=== PATIENT | female | born 1950 | race Caucasian/White ===

== ENCOUNTER 2018-08-27 06:37 | Day surgery (SDC) | payer MEDICARE, BC ==
[2018-08-27] MEDS ORDERED: Lidocaine 2% Jelly 30 ML Tube ONE (06:51)
[2018-08-27] MEDS ORDERED: Lidocaine 1% with EPINEPHrine 1:100,000 50 ML MDV ONE (06:51)
[2018-08-27] MEDS ORDERED: ceFAZolin 2 GM in Premix Bag 1 BAG IV ONE (07:00)
[2018-08-27] MEDS ORDERED: Sodium Chloride 0.9% 1,000 ML IV SCH (07:00)
[2018-08-27] MEDS ORDERED: Midazolam 1 MG/ML 2 ML SDV ONE (07:29)
[2018-08-27] MEDS ORDERED: Propofol 200 MG/20 ML SDV ONE (07:29)
[2018-08-27] MEDS ORDERED: fentaNYL 100 MCG/2 ML SDV ONE (07:29)
--- NOTE | 2018-08-28 08:00 | OR ---
DATE OF PROCEDURE: 08/27/2018 SURGEON: Bartolo Alva MD PROCEDURES: 1. Excision of right hip eschar, 7.5 x 5.2 cm, full thickness. 2. Debridement of inferior wound, right hip, 1.1 x 1.8, full thickness (45141). 3. Wound VAC placement, right hip, 2 locations, #1 and #2 ([id number]). COMPLICATIONS: None. TAPE MAKER: None. ANESTHESIA: MAC/local. PREOPERATIVE DIAGNOSIS: Chronic wound. POSTOPERATIVE DIAGNOSIS: Chronic wound. RISKS: Risks, benefits, alternatives, and limitations including, but not limited to infection, bleeding, perforation, and chronic wounds were explained to the patient, who wished to proceed. PROCEDURE IN DETAIL: The patient was placed in left lateral decubitus position. The wound was readily identified. This eschar was removed using a combination of 15 blade and electrocautery. This was carried down into the fat. This was also cultured. The smaller wound was also debrided in the same manner, also full-thickness. This was then thoroughly irrigated after culturing of the wound itself. Once this was complete, a wound VAC system with black sponge was placed. This was cut into place using a sponge-type kit with a clear film placed over the bridge between the 2 wounds. This was then covered with film and suction was applied, after placing the track pad. A StatLock was then used to secure the tubing in place. The procedure was completed. The patient tolerated the procedure well. Bartolo Alva MD /[id number]
== END 2018-08-27 11:42 | disposition home or self-care (01) ==
LOC: JP.SDS 06:37
PROVIDERS: ATTEND Surgery
DX: E11.52 Type 2 diabetes mellitus with diabetic peripheral angiopathy with gangrene (principal); I96 Gangrene, not elsewhere classified; L02.415 Cutaneous abscess of right lower limb; I25.10 Atherosclerotic heart disease of native coronary artery without angina pectoris; I50.9 Heart failure, unspecified; E78.00 Pure hypercholesterolemia, unspecified; E11.22 Type 2 diabetes mellitus with diabetic chronic kidney disease; N18.9 Chronic kidney disease, unspecified; F32.9 Major depressive disorder, single episode, unspecified; K74.60 Unspecified cirrhosis of liver; Z95.5 Presence of coronary angioplasty implant and graft
CPT/HCPCS: 15002; 87070; 87075; 87077; 87186; 87205; 88304; 97605; J0690; J2250; J2704; J3010; J7030